=== PATIENT | female | born 1955 | race Caucasian/White ===

== ENCOUNTER → 2019-08-05 | Outpatient (CLI) | payer OTHER ==
[~2019-08-05] MED LIST: CETI10CA5 PO; LEVO100T12 PO; NAPR220C15 PO; TRAM50TA4 PO
== END | disposition home or self-care (01) ==
LOC: RAH 10:29
PROVIDERS: ATTEND Surgery
DX: R10.9 Unspecified abdominal pain (principal)
CPT/HCPCS: 76705

== ENCOUNTER 2019-08-12 09:14 | Day surgery (SDC) | payer OTHER ==
[~2019-08-12] VITALS: Ht 158.8 cm; Wt 61.0 kg
[~2019-08-12 09:14] MED LIST changes: +SODIUM CHLORIDE 0.9% 1000ML 1,000 ML IV ONE
[2019-08-12 10:50] VITALS: BP 116/46
[2019-08-12 12:23] LABS: HEMATOCRIT 39.3 % (36-48); MEAN CORPUSCULAR HEMOGLOBIN 27.1 pg (27.0-33.0); MEAN CORPUSCULAR HGB CONC 33.5 g/dL (32.0-36.0); MEAN CORPUSCULAR VOLUME 81.1 fL (79-99); PLATELET COUNT (AUTO) 241 K/uL (130-400); RED BLOOD CELL COUNT(AUTO) 4.85 MIL/uL (4.00-5.50); RED CELL DISTRIBUTION WIDTH 15.6 % (11.0-15.5); WHITE BLOOD COUNT (AUTO) 4.1 K/uL (4.8-10.8)
[2019-08-12 12:25] LABS: CREATININE 0.9 mg/dL (0.5-1.5); POTASSIUM 4.7 mmol/L (3.5-5.1)
[2019-08-12 14:25] VITALS: BP 150/84
[2019-08-12 14:30] VITALS: BP 99/69
[2019-08-12 14:35] VITALS: BP 110/50
[2019-08-12 14:40] VITALS: BP 140/52
[2019-08-12 14:45] VITALS: BP 120/52
== END 2019-08-12 15:00 | disposition home or self-care (01) ==
LOC: DAH 09:14 → ENDO 09:14 → EDUNIT# 10:00 → ENDO 15:00
PROVIDERS: ATTEND Surgery
DX: K21.9 Gastro-esophageal reflux disease without esophagitis (principal); E03.9 Hypothyroidism, unspecified; F32.9 Major depressive disorder, single episode, unspecified; M54.5 Low back pain; Z93.1 Gastrostomy status; Z98.84 Bariatric surgery status; Z79.899 Other long term (current) drug therapy; Z98.890 Other specified postprocedural states; Z98.51 Tubal ligation status
CPT/HCPCS: 36415; 43249; 80048; 85027; A4215; A4221; A4222; A4223; A4606; A4620; A4663; J7030

== ENCOUNTER → 2021-10-13 | Outpatient (CLI) | payer OTHER ==
[~2021-10-13] MED LIST changes: -SODIUM CHLORIDE 0.9% 1000ML 1,000 ML IV ONE
== END | disposition home or self-care (01) ==
LOC: RAH 11:57
PROVIDERS: ATTEND Neurological Surgery
DX: M19.041 Primary osteoarthritis, right hand (principal)
CPT/HCPCS: 73130

== ENCOUNTER → 2022-12-27 | Outpatient (CLI) | payer OTHER | END | disposition home or self-care (01) | LOC: SHCH 14:32 | PROVIDERS: ATTEND Student in an Organized Health Care Education/Training Program | DX: I07.1 Rheumatic tricuspid insufficiency (principal); R07.9 Chest pain, unspecified; I70.211 Atherosclerosis of native arteries of extremities with intermittent claudication, right leg | CPT/HCPCS: 93306; 93925 ==

== ENCOUNTER → 2024-06-15 | Outpatient (CLI) | payer OTHER ==
[2024-06-18 10:15] LABS: FREE KAPPA LIGHT CHAINS,S 21.2 mg/L (3.3-19.4)
[2024-06-18 14:13] LABS: ALBUMIN (PEP) 3.3 g/dL (2.9-4.4); GAMMA URINE 15.5 % (.); TOTAL PROTEIN 6.1 g/dL (6.0-8.5)
== END | disposition home or self-care (01) ==
LOC: LAB 15:55
PROVIDERS: ATTEND Student in an Organized Health Care Education/Training Program
DX: E85.9 Amyloidosis, unspecified (principal)
CPT/HCPCS: 36415; 83521; 84155; 84156; 84165; 84166; 86325